=== PATIENT | female | born 1995 | race African-American/Black ===

== ENCOUNTER 2017-03-19 21:55 | Inpatient (IN) | payer OTHER ==
[~2017-03-19 21:55] MED LIST: DEXTROSE 5%-LACTATED RINGERS 500 ML IV SCH
[2017-03-19] MEDS ORDERED: DEXTROSE 5%-LACTATED RINGERS 500 ML IV SCH (22:55)
[2017-03-19] MEDS ORDERED: TUBERCULIN PPD 5 TU/0.1ML SYRINGE (IN PATIENT USE ONLY) ID ONE (23:15)
[2017-03-19] MEDS ORDERED: DINOPROSTONE 10 MG VAGINAL SUPPOSITORY VG ONE (23:15)
[2017-03-19 23:46] LABS: BASOPHIL 0.4 % (0-2.0); MCH 27.3 pg (25.7-33.7); MEAN CELL VOLUME 82.6 fl (80-96); MEAN PLT VOLUME 8.3 fl (7.5-11.1); NEUTROPHILS 67.2 % (42.8-82.8); PLATELET COUNT 158 K/MM3 (134-434); RDW 14.4 % (11.6-15.6)
[2017-03-20 00:02] LABS: INR 0.96 (0.82-1.09); PROTHROMBIN TIME (PATIENT) 10.5 SEC (9.98-11.88)
[2017-03-20 00:05] LABS: ACTIVATED PTT 28.8 SECONDS (26.9-34.4)
[2017-03-20 00:14] LABS: ANION GAP 9 (8-16); CALCIUM 8.7 mg/dL (8.5-10.1); CO2 24 mmol/L (21-32); CREATININE 0.8 mg/dL (0.55-1.02); GLUCOSE,RANDOM 111 mg/dL (74-106)
[2017-03-20 00:44] VITALS: BMI 28.8
[2017-03-20] MEDS: DEXTROSE 5%-LACTATED RINGERS 1,000 ML IV SCH ×3 (01:30→20:00)
[2017-03-20] MEDS ORDERED: DINOPROSTONE 10 MG VAGINAL SUPPOSITORY VG ONE (11:00)
--- NOTE | 2017-03-20 11:11 | HP ---
Past Medical History - Admission Chief Complaint: Here for labor induction History of Present Illness: 22 y/o with SIUP at 41.1 weeks gestation here for labor induction due to late term. 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 Pt SMA carrier and had umbilical cord cyst on 1st trimester screen - has been stable. Otherwise testing stable. GBS negative. HepBSag negative, RPR negative. Rubella Immune. History Source: Patient, Medical Record Limitations to Obtaining History: No Limitations - Past Medical History PODIATRIST: No: Migraine Cardiovascular: No: HTN Pulmonary: No: Asthma, COPD Gastrointestinal: No: Constipation, GERD Hepatobiliary: No: Cholecystitis Reproductive: No: Ectopic , PID ...: 2 ...Para: 0 ...Term: 0 ...: 0 ...Spon : 0 ...Induced : 1 ...Multiple Gestation: 0 ...LMP: 06/05/16 ... Weeks Gestation by Dates: 41.1 ...EDC by Dates: 03/12/17 Heme/Onc: Yes: Anemia Psych: No: Anxiety, Bipolar, Depression Endocrine: No: Diabetes Mellitus, Hyperthyroidism - Past Surgical History Past Surgical History: Yes: None Hx Myomectomy: No Hx Transabdominal Cerclage: No - Smoking History Smoking history: Never smoked Have you smoked in the past 12 months: No - Alcohol/Substance Use Hx Alcohol Use: No Home Medications - Allergies Allergies/Adverse Reactions: Allergies Allergy/AdvReac Type Severity Reaction Status Date / Time peanut Allergy Intermediate Hives Verified 03/19/17 22:59 - Home Medications Home Medications: Ambulatory Orders Vit No.130/Iron/FA [ Vitamins] 1 each PO DAILY 12/15/16 Acyclovir [Zovirax -] 400 mg PO BID 03/19/17 Review of Systems - Review of Systems Constitutional: reports: No Symptoms Eyes: reports: No Symptoms HENT: reports: No Symptoms Neck: reports: No Symptoms Cardiovascular: reports: No Symptoms Respiratory: reports: No Symptoms Gastrointestinal: reports: No Symptoms Genitourinary: reports: No Symptoms Breasts: reports: No Symptoms Reported Musculoskeletal: reports: No Symptoms Integumentary: reports: No Symptoms Neurological: reports: No Symptoms Endocrine: reports: No Symptoms Hematology/Lymphatic: reports: No Symptoms Psychiatric: reports: No Symptoms Physical Exam - Maternity Vital Signs: Vital Signs Temperature 98.4 F 03/20/17 10:00 Pulse Rate 92 H 03/20/17 10:00 Respiratory Rate 18 03/20/17 10:00 Blood Pressure 124/79 03/20/17 10:00 O2 Sat by Pulse Oximetry (%) Constitutional: Yes: Well Nourished, No Distress, Calm Eyes: Yes: Conjunctiva Clear, EOM Intact HENT: Yes: Atraumatic, Normocephalic Neck: Yes: Supple, Trachea Midline Cardiovascular: Yes: Regular Rate and Rhythm Lungs: Clear to auscultation - Abdominal Exam/OB Number of Fetuses: Single Presentation: Vertex Contractions: Yes Regularity: Regular Intensity: Moderate Category: I Accelerations: Uniform Decelerations: None - Vaginal Exam/OB Dilatation (cm): 1 Effacement (%): 0 Amniotic Membrane Status: Intact Presentation: Vertex/Position Station: -3 - Physical Exam Psychiatric: Yes: Alert, Oriented - Labs Lab Results: CBC, BMP 03/19/17 23:30 03/19/17 23:30 Hemorrhage Risk Assessment - Risk Factors Medium Risk Factors: Yes: None High Risk Factors: Yes: None Risk Score: 1 Risk Level: Medium Risk Problem List - Problems (1) Post-dates Code(s): O48.0 - POST-TERM (2) HSV infection Code(s): B00.9 - HERPESVIRAL INFECTION, UNSPECIFIED Assessment/Plan 22 y/o with SIUP at 41.1 weeks, IOL for late term - AFVSS - FHTs cat 1 - IOL, s/p cervidil overnight, 2nd placed this a.m. - will reassess in 12 hours - GBS negative
[2017-03-20] MEDS ORDERED: PROMETHAZINE HCL 25 MG/1 ML VIAL IVPUSH ONE (11:19)
--- NOTE | 2017-03-20 19:53 | PN ---
Ante-Partal Exam - Subjective Subjective: Pt uncomfortable with contractions. Cervidil fell out. Vital Signs: Vital Signs Temperature 98.1 F 03/20/17 18:00 Pulse Rate 92 H 03/20/17 19:00 Respiratory Rate 18 03/20/17 19:00 Blood Pressure 120/66 03/20/17 19:00 O2 Sat by Pulse Oximetry (%) Bleeding: No Headache: No Visual changes: No Right upper quadrant pain: No - Contractions Contractions: Yes Regularity: Irregular Intensity: Moderate - Exam during Labor Heart Rate: 135 Variability: Moderate Category: I Monitor Accelerations: Present Monitor Decelerations: None Exam: Vaginal Dilatation (cm): 1 Effacement (%): 0 Amniotic Membrane Status: Intact Presentation: Vertex Station: -3 - Assessment/Plan Assessment/Plan: 22 y/o with SIUP at 41 weeks, IOL for late term - AFVSS - FHTS cat 1 - IOL, s/p cervidil X 2. For Mccray bulb balloon placement at this time. - GBS negative - continue current care
[2017-03-20] MEDS: BUTORPHANOL TARTRATE 1 MG/ML VIAL IVPB PRN (21:15)
--- NOTE | 2017-03-20 21:17 | PROC ---
Procedure Note Procedure: Mccray balloon catheter placed in the cervix - inside the internal os 30cc balloon advanced, 30cc saline injected to inflate balloon balloon placed on traction will monitor IV analgesia PRN
[2017-03-20] MEDS ORDERED: PROMETHAZINE HCL 25 MG/1 ML VIAL IVPB PRN (22:56)
[2017-03-20] MEDS ORDERED: OXYTOCIN 15 UNITS/ LR 250 ML 250 ML IV SCH (23:00)
--- NOTE | 2017-03-20 23:03 | PN ---
Ante-Partal Exam - Subjective Subjective: Came to evaluate patient - daugherty balloon catheter had fallen out into the bed. S/p Stadol/phenergan, resting in between contractions. Vital Signs: Vital Signs Temperature 98.0 F 03/20/17 22:00 Pulse Rate 87 03/20/17 22:00 Respiratory Rate 18 03/20/17 22:00 Blood Pressure 138/87 03/20/17 22:00 O2 Sat by Pulse Oximetry (%) Bleeding: No Headache: No Visual changes: No Right upper quadrant pain: No - Contractions Contractions: Yes Regularity: Irregular Intensity: Mild/Mod Monitor Mode: External - Exam during Labor Heart Rate: 135 Variability: Minimal Category: I Monitor Accelerations: Present Monitor Decelerations: None Exam: Vaginal Dilatation (cm): 3 Effacement (%): 0 Amniotic Membrane Status: Intact Presentation: Vertex Station: -3 - Intrapartum Hemorrhage Risk Medium Risk Factors: None High Risk Factors: None Risk Score: 0 Risk Level: Low Risk - Assessment/Plan Assessment/Plan: 22 y/o with SIUP at 41.1 weeks, IOL for late term - AFVSS - FHTs cat 1 - IOL, s/p cervidil X 2 and s/p daugherty bulb catheter , now 3cm dilated, will start pitocin - IV analgesia or epidural prn - GBS negative
[2017-03-21] MEDS: DEXTROSE 5%-LACTATED RINGERS 1,000 ML IV SCH (03:00)
[2017-03-21] MEDS: BUTORPHANOL TARTRATE 1 MG/ML VIAL IVPB PRN (07:20)
--- NOTE | 2017-03-21 07:51 | PN ---
Ante-Partal Exam - Subjective Subjective: pt comfortable s/p stadol/phenergan Vital Signs: Vital Signs Temperature 98.9 F 03/21/17 05:45 Pulse Rate 92 H 03/21/17 05:45 Respiratory Rate 20 03/21/17 05:45 Blood Pressure 129/90 03/21/17 05:45 O2 Sat by Pulse Oximetry (%) Bleeding: No Headache: No Visual changes: No Right upper quadrant pain: No Pain (scale 1-10): 2 - Contractions Contractions: Yes Regularity: Regular Intensity: Moderate Monitor Mode: External - Exam during Labor Heart Rate: 150 Variability: Moderate Category: I Monitor Accelerations: Present Monitor Decelerations: None Exam: Vaginal Dilatation (cm): 3 Effacement (%): 25 Amniotic Membrane Status: Ruptured (AROM for clear fluid at this examination) Amniotic Fluid: Clear Presentation: Vertex Station: -3 - Intrapartum Hemorrhage Risk Medium Risk Factors: None High Risk Factors: None Risk Score: 0 Risk Level: Low Risk - Assessment/Plan Assessment/Plan: 22 y/o with SIUP at 41.2 weeks, IOL for late term - AFVSS - FHTs cat 1 - IOL, s/p cervidil x 2 , s/p daugherty bulb, now on pitocin. Now AROM for clear fluid at this examination. - for epidural prn
[2017-03-21] MEDS: ELECTROLYTE-148 SOLN 1,000 ML IV SCH ×2 (10:30→20:54)
--- NOTE | 2017-03-21 11:39 | PN ---
Ante-Partal Exam - Subjective Subjective: Pt on 18mu pitocin Pt with c/o pain Vital Signs: Vital Signs Temperature 98.1 F 03/21/17 10:00 Pulse Rate 73 03/21/17 10:00 Respiratory Rate 20 03/21/17 10:00 Blood Pressure 124/74 03/21/17 10:00 O2 Sat by Pulse Oximetry (%) Bleeding: No Headache: No Visual changes: No Right upper quadrant pain: No - Contractions Contractions: Yes Regularity: Regular Intensity: Moderate Monitor Mode: External - Exam during Labor Variability: Moderate Heart Rate Location: [facility] Category: II Monitor Accelerations: Present Monitor Decelerations: Variable Exam: Vaginal Dilatation (cm): 3 Effacement (%): 70 Amniotic Membrane Status: Ruptured Presentation: Vertex Station: 0 - Assessment/Plan Assessment/Plan: Failure to Dilate Cat 2 lack of progress discussed with pt who agrees on having a CS Plan Primary CS
[2017-03-21] MEDS ORDERED: ONDANSETRON 4 MG/2 ML VIAL IVPB PRN (15:24)
[2017-03-21] MEDS ORDERED: morphine SULFATE/Preservative Free 0.5 MG/ML (1cc Syringe) EP ONE (15:24)
[2017-03-21] MEDS ORDERED: IBUPROFEN 800 MG/8 ML IJ IVPB PRN (15:25)
[2017-03-21] MEDS ORDERED: oxyCODONE HCL 5 MG TABLET PO PRN ×2 (16:23)
[2017-03-21] MEDS ORDERED: METHYLERGONOVINE MALEATE 0.2 MG/1 ML AMP IM PRN (16:23)
--- NOTE | 2017-03-21 16:56 | OP ---
Operative Note - Note: Operative Date: 03/21/17 Pre-Operative Diagnosis: failed labor induction, late term Operation: primary low transverse delivery Findings: normal b/l tubes and ovaries Post-Operative Diagnosis: Same as Pre-op Surgeon: Matilde Turner Fountain Manager: Herberth Corcoran Anesthesiologist/PAN DEVULCANIZER HELPER: Taqueria Hitchcock Anesthesia: Spinal Specimens Removed: placenta Estimated Blood Loss (mls): 700 Operative Report Dictated: Yes
[2017-03-21] MEDS ORDERED: BISACODYL 10 MG SUPP.RECT RC PRN (17:12)
[2017-03-21] MEDS: OXYTOCIN 20 UNITS in 0.9% NS 1,000 ML IV SCH (18:30)
[2017-03-21] MEDS: PRENATAL VITAMINS W/ FOLIC ACID TABLET (FP) PO SCH (20:54)
[2017-03-22] MEDS: OXYTOCIN 20 UNITS in 0.9% NS 1,000 ML IV SCH (01:23)
[2017-03-22 07:46] LABS: BASOPHIL 0.3 % (0-2.0); EOSINOPHIL 0.1 % (0-4.5); MCH 26.6 pg (25.7-33.7); MCHC 32.2 g/dl (32.0-36.0); MEAN CELL VOLUME 82.5 fl (80-96); MEAN PLT VOLUME 8.5 fl (7.5-11.1); NEUTROPHILS 82.1 % (42.8-82.8); PLATELET COUNT 148 K/MM3 (134-434); RDW 14.6 % (11.6-15.6); WHITE BLOOD COUNT 17.4 K/mm3 (4.0-10.0)
[2017-03-22] MEDS: DEXTROSE 5%-LACTATED RINGERS 1,000 ML IV SCH (08:56)
[2017-03-22] MEDS: PRENATAL VITAMINS W/ FOLIC ACID TABLET (FP) PO SCH (09:08)
[2017-03-22] MEDS: CEFAZOLIN (PRE-DOCKED) 50 ML IVPB SCH ×2 (12:34→19:50)
--- NOTE | 2017-03-22 16:01 | PN ---
Post Progress Note Type of Delivery: Primary C/S Vital Signs: Vital Signs Temperature 98.8 F 03/22/17 14:27 Pulse Rate 101 H 03/22/17 13:55 Respiratory Rate 20 03/22/17 14:00 Blood Pressure 109/74 03/22/17 13:55 O2 Sat by Pulse Oximetry (%) 100 03/21/17 17:50 Uterus: Yes: Fundus Firm, Fundus below umbilicus Incision: Yes: Dressing dry and intact Abdomen/GI: Yes: Abdomen soft, Tender, Tolerating PO. No: Passing flatus Lochia: Yes: Rubra Lochia, amount: Small Extremities: Yes: Calves non-tender. No: Edema Perineum: Yes: Intact Activity: Ambulating - Labs Labs: CBC WBC 17.4 K/mm3 (4.0-10.0) H D 03/22/17 06:00 RBC 3.49 M/mm3 (3.60-5.2) L 03/22/17 06:00 Hgb 9.3 GM/dL (10.7-15.3) L 03/22/17 06:00 Hct 28.8 % (32.4-45.2) L 03/22/17 06:00 MCV 82.5 fl (80-96) 03/22/17 06:00 MCH 26.6 pg (25.7-33.7) 03/22/17 06:00 MCHC 32.2 g/dl (32.0-36.0) 03/22/17 06:00 RDW 14.6 % (11.6-15.6) 03/22/17 06:00 Plt Count 148 K/MM3 (134-434) 03/22/17 06:00 MPV 8.5 fl (7.5-11.1) 03/22/17 06:00 Neutrophils % 82.1 % (42.8-82.8) D 03/22/17 06:00 Lymphocytes % 8.5 % (8-40) D 03/22/17 06:00 Monocytes % 9.0 % (3.8-10.2) 03/22/17 06:00 Eosinophils % 0.1 % (0-4.5) D 03/22/17 06:00 Basophils % 0.3 % (0-2.0) 03/22/17 06:00 Problem List - Problems (1) Post-dates Code(s): O48.0 - POST-TERM (2) HSV infection Code(s): B00.9 - HERPESVIRAL INFECTION, UNSPECIFIED (3) delivery delivered Code(s): O82 - ENCOUNTER FOR DELIVERY WITHOUT INDICATION Assessment/Plan 22 y/o POD#1 s/p primary delivery for arrest of dilation/failed IOL - AFVSS - Tmax 100.3 and WBC 17.4 - is on IV Ancef X 24 hours, will monitor - encourage ambulation - s/p void - advance diet as tolerated - po pain meds
[2017-03-22] MEDS ORDERED: BISACODYL 10 MG SUPP.RECT RC PRN (16:23)
[2017-03-22] MEDS: IBUPROFEN 600 MG TABLET (FP) PO PRN (19:48)
[2017-03-22] MEDS: SIMETHICONE 80 MG TAB.CHEW (FP) PO PRN (19:48)
[2017-03-22] MEDS: ACETAMINOPHEN 325 MG TABLET (FP) PO PRN (19:49)
[2017-03-23] MEDS: CEFAZOLIN (PRE-DOCKED) 50 ML IVPB SCH (03:55)
[2017-03-23] MEDS: DEXTROSE 5%-LACTATED RINGERS 1,000 ML IV SCH (03:55)
--- NOTE | 2017-03-23 09:23 | PN ---
Progress Note, Physician Chief Complaint: Patient offers no complaints History of Present Illness: 22 year old female, s/p caesearn section day 2 - Current Medication List Current Medications: Active Medications Acetaminophen (Tylenol -) 650 mg PO Q4H PRN PRN Reason: FEVER OR PAIN Last Admin: 03/22/17 19:49 Dose: 650 mg Bisacodyl (Dulcolax Suppository -) 10 mg RC BID PRN PRN Reason: CONSTIPATION Diphenhydramine HCl (Benadryl Injection -) 25 mg IVPUSH Q4H PRN PRN Reason: Pruritis Dextrose/Lactated Ringer's (D5-Lr -) 1,000 mls @ 125 mls/hr IV ASDIR MATIAS Last Admin: 03/23/17 03:55 Dose: 125 mls/hr Oxytocin/Sodium Chloride (Normal Saline+20 Units Oxytocin -) 1,000 mls @ 125 mls/hr IV ASDIR MATIAS Last Admin: 03/22/17 01:23 Dose: 125 mls/hr Cefazolin Sodium (Ancef 1gm Ivpb (Pre-Docked)) 50 mls @ 100 mls/hr IVPB Q8H [facility] Stop: 03/23/17 11:59 Last Admin: 03/23/17 03:55 Dose: 100 mls/hr Ibuprofen (Caldolor Injection -) 600 mg IVPB Q8H PRN PRN Reason: FEVER Ibuprofen (Motrin -) 600 mg PO Q4H PRN PRN Reason: PAIN Last Admin: 03/22/17 19:48 Dose: 600 mg Methylergonovine Maleate (Methergine Injection -) 0.2 mg IM Q4H PRN PRN Reason: Excessive Bleeding (L&D) Oxycodone HCl (Roxicodone -) 5 mg PO Q4H PRN PRN Reason: PAIN LEVEL 1-5 Oxycodone HCl (Roxicodone -) 10 mg PO Q4H PRN PRN Reason: PAIN LEVEL 6-10 Multivit/Folic Acid/Iron ( Vitamins (Sjr) -) 1 tab PO DAILY [facility] Last Admin: 03/22/17 09:08 Dose: Not Given Simethicone (Mylicon -) 80 mg PO Q4H PRN PRN Reason: GAS Last Admin: 03/22/17 19:48 Dose: 80 mg - Objective Vital Signs: Vital Signs Temperature 97.9 F 03/23/17 04:00 Pulse Rate 76 03/23/17 04:00 Respiratory Rate 18 03/23/17 04:00 Blood Pressure 106/76 03/23/17 04:00 O2 Sat by Pulse Oximetry (%) 100 03/21/17 17:50 Constitutional: Yes: No Distress, Calm Eyes: Yes: Conjunctiva Clear, EOM Intact HENT: Yes: Atraumatic, Normocephalic Neck: Yes: Supple, Trachea Midline Cardiovascular: Yes: Regular Rate and Rhythm Respiratory: Yes: Regular Gastrointestinal: Yes: WNL, Normal Bowel Sounds, Soft ...Rectal Exam: Yes: Deferred Genitourinary: Yes: WNL Breast(s): Yes: WNL Musculoskeletal: Yes: WNL Extremities: Yes: WNL Edema: No Peripheral Pulses WNL: Yes Integumentary: Yes: WNL Wound/Incision: Yes: Clean/Dry Neurological: Yes: Alert, Oriented ...Motor Strength: WNL Psychiatric: Yes: Alert, Oriented Labs: CBC, BMP 03/22/17 06:00 03/19/17 23:30 INR, PTT INR 0.96 (0.82-1.09) 03/19/17 23:30 Assessment/Plan s/p caesearan section day 2. condition stable, continue current care.
[2017-03-23] MEDS: PRENATAL VITAMINS W/ FOLIC ACID TABLET (FP) PO SCH (10:34)
[2017-03-23] MEDS: ACETAMINOPHEN 325 MG TABLET (FP) PO PRN ×2 (10:36→21:24)
[2017-03-23] MEDS: SIMETHICONE 80 MG TAB.CHEW (FP) PO PRN ×2 (10:38→21:23)
[2017-03-23] MEDS: IBUPROFEN 600 MG TABLET (FP) PO PRN ×2 (10:40→21:24)
--- NOTE | 2017-03-23 16:45 | PN ---
Progress Note (short form) - Note Progress Note: Anesthesiology post op check S/p c section post op day 2 under spinal anesthesia with duramorph for post op pain control Patient reports adequate pain control, no nausea or vomiting and full return of motor function. Vital Signs Temperature 97.9 F 03/23/17 10:00 Pulse Rate 91 H 03/23/17 10:00 Respiratory Rate 20 03/23/17 10:00 Blood Pressure 134/82 03/23/17 10:00 O2 Sat by Pulse Oximetry (%) 100 03/21/17 17:50 No sign of neurologic deficits A/P no adverse effects of anesthetic, dept of anesthesia will sign off care at this time, Feel free to re consult the department with further questions or concerns regarding pain or the anesthetic administered.
--- NOTE | 2017-03-24 07:05 | PN ---
Post Progress Note - Subjective Subjective: Pt seen/evaluated and doing well. No complaints. Ambulating, voiding, passing flatus, tolerating diet. No CP, SOB, F/C/SHANE. Type of Delivery: Primary C/S Vital Signs: Vital Signs Temperature 98.0 F 03/23/17 21:48 Pulse Rate 89 03/23/17 21:48 Respiratory Rate 20 03/23/17 21:48 Blood Pressure 110/73 03/23/17 21:48 O2 Sat by Pulse Oximetry (%) 100 03/21/17 17:50 Uterus: Yes: Fundus Firm, Fundus below umbilicus Incision: Yes: Sutures intact Abdomen/GI: Yes: Abdomen soft, Passing flatus, Tolerating PO. No: Abdominal Distention, Tender Lochia: Yes: Rubra Lochia, amount: Small Extremities: Yes: Calves non-tender. No: Edema Perineum: Yes: Intact Activity: Ambulating - Labs Labs: CBC WBC 17.4 K/mm3 (4.0-10.0) H D 03/22/17 06:00 RBC 3.49 M/mm3 (3.60-5.2) L 03/22/17 06:00 Hgb 9.3 GM/dL (10.7-15.3) L 03/22/17 06:00 Hct 28.8 % (32.4-45.2) L 03/22/17 06:00 MCV 82.5 fl (80-96) 03/22/17 06:00 MCH 26.6 pg (25.7-33.7) 03/22/17 06:00 MCHC 32.2 g/dl (32.0-36.0) 03/22/17 06:00 RDW 14.6 % (11.6-15.6) 03/22/17 06:00 Plt Count 148 K/MM3 (134-434) 03/22/17 06:00 MPV 8.5 fl (7.5-11.1) 03/22/17 06:00 Neutrophils % 82.1 % (42.8-82.8) D 03/22/17 06:00 Lymphocytes % 8.5 % (8-40) D 03/22/17 06:00 Monocytes % 9.0 % (3.8-10.2) 03/22/17 06:00 Eosinophils % 0.1 % (0-4.5) D 03/22/17 06:00 Basophils % 0.3 % (0-2.0) 03/22/17 06:00 Problem List - Problems (1) Post-dates Code(s): O48.0 - POST-TERM (2) HSV infection Code(s): B00.9 - HERPESVIRAL INFECTION, UNSPECIFIED (3) delivery delivered Code(s): O82 - ENCOUNTER FOR DELIVERY WITHOUT INDICATION Assessment/Plan 22 y/o POD#3 s/p primary delivery for arrest of dilation/failed IOL - AFVSS - encourage ambulation - regular diet, PO pain meds - routine care - ok for discharge
--- NOTE | 2017-03-24 07:11 | DS ---
Physical Exam-PATIENT FINANCIAL REP Vital Signs: Vital Signs Temperature 98.0 F 03/23/17 21:48 Pulse Rate 89 03/23/17 21:48 Respiratory Rate 20 03/23/17 21:48 Blood Pressure 110/73 03/23/17 21:48 O2 Sat by Pulse Oximetry (%) 100 03/21/17 17:50 Constitutional: Yes: Well Nourished, No Distress, Calm Eyes: Yes: Conjunctiva Clear, EOM Intact Neck: Yes: Trachea Midline Cardiovascular: Yes: Regular Rate and Rhythm Respiratory: Yes: Regular, CTA Bilaterally Gastrointestinal: Yes: Normal Bowel Sounds, Soft Labs: CBC, BMP 03/22/17 06:00 03/19/17 23:30 Delivery - Delivery Section: Primary, Low Flap Transverse Type of Anesthesia: Spinal Episiotomy/Laceration: None EBL (cc): 700 Delivery, Single - Stages of Labor Date 1st Stage Initiatied: 03/20/17 Time 1st Stage Initiated: 23:00 Date of Delivery: 03/21/17 Time of Delivery: 16:32 Time Placenta Delivered: 16:33 - Condition of Infant Infrastructure Analyst/Naturalization Examiner Present: Yes Name: Shabbir Jones Infant Gender: Male Weight: 8 lb 10 oz Position: OP Total Hours ROM (Hrs/Mins): 8HRS 53MIN - 1 Minute Total Score: 8 5 Minutes Total Score: 9 - Feeding Plan Initial Plan: Elected not to breastfeed exclusively throughout hospitalization Discharge Summary Reason For Visit: LABOR ADMIT Current Active Problems delivery delivered (Acute) HSV infection (Acute) Post-dates (Acute) Procedures: Principal: Primary delivery. Hospital Course: Patient admitted on 03/19/17 for labor induction, due to failed induction underwent uncomplicated primary delivery on 03/21/17. The patient had an uncomplicated post course and was discharged home in stable condition on post op day 3. Condition: Good - Instructions Diet, Activity, Other Instructions: Physical activity Resume your normal everyday activity as tolerated but no heavy lifting or strenuous exercise until seen by your surgeon. You may walk unlimited amounts and climb stairs. You may resume driving the car when you feel safe and comfortable behind the wheel. No sexual activity as instructed for 6 weeks. Wound care If there are tapes on the skin leave them in place. They will peel off in the next 7 to 10 days. Do Not Peel them off. You may shower the day after surgery. If there are tapes present on the skin, you may shower over them. Follow up in 1 week in the office to check your incision - call the office to make that appointment. Diet There are no dietary restrictions. Eat healthy, high-fiber foods. Drink 6 to 8 glasses of liquid each day. This will assist in keeping your bowels regular. Pain management You may take Tylenol or Ibuprofen (for example, Motrin, Advil etc.) for mild pain . If any prescription medication is ordered should be taken as prescribed for moderate to severe pain. Call MD for any of the following: Severe pain not relieved by medication Fever of 101 or higher Excessive bleeding or drainage on dressing Inability to urinate Referrals: Matilde Turner DO [Staff Physician] - 1 Week Disposition: HOME - Home Medications Comprehensive Discharge Medication List: Ambulatory Orders Vit No.130/Iron/FA [ Vitamins] 1 each PO DAILY 12/15/16 Acyclovir [Zovirax -] 400 mg PO BID 03/19/17 Ibuprofen [Motrin -] 600 mg PO QID PRN #28 tablet 03/24/17 Oxycodone HCl/Acetaminophen [Percocet 5-325 mg Tablet -] 1 tab PO Q4H #30 tablet MDD 6 03/24/17
[2017-03-24] MEDS: PRENATAL VITAMINS W/ FOLIC ACID TABLET (FP) PO SCH (09:17)
[2017-03-24 10:06] LABS: BASOPHIL 0.2 % (0-2.0); EOSINOPHIL 3.1 % (0-4.5); MCH 27.5 pg (25.7-33.7); MCHC 33.6 g/dl (32.0-36.0); MEAN CELL VOLUME 81.9 fl (80-96); MEAN PLT VOLUME 8.1 fl (7.5-11.1); NEUTROPHILS 76.1 % (42.8-82.8); PLATELET COUNT 210 K/MM3 (134-434); RDW 14.8 % (11.6-15.6)
[2017-03-24 10:20] VITALS: BP 115/75; PULSE 83; TEMP 97.9
--- NOTE | 2017-03-26 09:07 | OP ---
DATE OF OPERATION: 03/21/2017 PREOPERATIVE DIAGNOSIS: Failed induction of labor in late term . POSTOPERATIVE DIAGNOSIS: Failed induction of labor in late term . PROCEDURE: Primary low transverse section. SURGEON: Matilde Turner DO MACHINE TOOL OPERATOR: ZANDER Palmer ANESTHESIA: Spinal, administered by Curtis Hitchcock MD. ESTIMATED BLOOD LOSS: 700 mL SPECIMENS REMOVED: Included placenta. FINDINGS: Normal bilateral tubes and ovaries. COMPLICATIONS: None. COUNTS: Sponge, needle, and instrument count correct. DISPOSITION: Stable to PACU. BRIEF HISTORY AND PROCEDURE: Patient is a 22-year-old, G2, P 0-0-1-0, who was admitted to Labor and Delivery on March 19, 2017, for a scheduled induction of labor secondary to a late term . Patient underwent a 48-hour induction of labor with minimal progress to only 3 cm dilated. The patient was offered options including continued induction versus proceed with delivery, and the patient elected to proceed with a delivery at this time. Consent for the procedure was signed. The patient on March 21, 2017, was then taken back to the operating room and given spinal anesthesia by Dr. Hitchcock. She was placed in the dorsal supine position, and a Mccray catheter was placed under sterile conditions. The patient was prepped and draped in the usual sterile fashion, and a hard timeout was performed. A Pfannenstiel skin incision was created in the skin with a scalpel and carried to the underlying layer of rectus fascia with the Bovie. The fascia was incised on either side of the midline with the Bovie, and the fascial incision was carried in the superolateral direction sharply. The fascia was tented upward and dissected off the underlying layer of rectus muscle sharply, and the muscle was retracted laterally. Next, the peritoneum was entered bluntly, and a bladder blade was inserted to protect the bladder. A transverse incision was created on the lower uterine segment which was extended in a superolateral direction bluntly. The was then delivered from the occiput posterior position without difficulty. The anterior and posterior shoulders both delivered with ease along with the remainder of the infant. The cord was clamped twice and cut in between and taken over to the warmer to be assessed by the neonatology staff, where the baby received scores of 8 and 9. The placenta was then delivered manually and intact. The uterus was exteriorized from the abdomen, inspected, and cleared of all amniotic membrane and debris with a dry lap sponge. The hysterotomy was reapproximated in a single-layer closure using 1 Vicryl suture in a running locked fashion. Any areas of bleeding were given figure-of-8 sutures with 0 Biosyn suture to create hemostasis. Bilateral tubes and ovaries were inspected and noted to be normal. Next, the posterior cul-de-sac was suctioned. The uterus was placed back into the abdomen. Bilateral gutters were inspected and cleared of all blood clot and debris. Again, the hysterotomy was noted to be hemostatic at this time. The peritoneal layer was reapproximated using 2-0 chromic suture in a running fashion. The musculature was reapproximated in 2 interrupted sutures using 0 Biosyn. The fascia was reapproximated using 1 Vicryl suture in a running fashion. Subcutaneous tissue was irrigated and reapproximated in interrupted sutures using 0 Biosyn suture, and the skin was reapproximated in subcuticular fashion using Vicryl suture. Steri-Strips were applied. The patient was then recovering well in the PACU area of the labor and delivery floor after the procedure. MATILDE TURNER DO /[id number]
--- NOTE | 2017-03-26 16:58 | PATH ---
Surgical Pathology Report Patient Name: WILLARD RICKS Med. Rec. #: [id number] /Age/Gender: 1995 (Age: 22) / F Account: [id number] Location: [facility] OBS/PET COUNSELOR Taken: 03/21/2017 Received: 03/22/2017 Reported: 03/26/2017 Physicians: Matilde Turner M.D. Specimen(s) Received PLACENTA Clinical History 41.2 weeks failed medical induction IAB x1,HSV treated with acyclovir, anemia History of SMA carrier-normal 16 weeks scan, umbilical cord cyst-benign Final Diagnosis PLACENTA, DELIVERY: THIRD TRIMESTER PLACENTA WITH SUBCHORIONIC FIBRIN DEPOSITION, 3 VESSEL UMBILICAL CORD, AND UNREMARKABLE PLACENTAL MEMBRANES. NO UMBILICAL CORD CYST IDENTIFIED. Electronically Signed Phu Villarreal M.D. Gross Description The specimen is received fresh labeled placenta and is a 535 gram, 19 x 15 x up to 3 cm. placenta with attached membranes and umbilical cord. The attached membranes are glistening and translucent and insert marginally. The umbilical cord measures 45 cm. in length and averages 1.5 cm. in diameter. The cord inserts eccentrically, 5 cm. to the nearest margin. No true knots or strictures are identified. No cystic area is identified. Cut surface of the umbilical cord reveals 3 vessels. The surface is eaton-blue with minimal fibrin deposition and appropriate caliber vessels. The maternal surface is lobulated and appears complete with no adherent blood clot or areas of thinning. Sectioning reveals red-brown, spongy parenchyma. No lesions are identified. Auditing Specialist sections are submitted in three cassettes as follows: 1- membrane rolls and umbilical cord; 2-3- full thickness sections of placenta. [facility]/03/25/2017 [facility]/03/25/2017
== END 2017-03-24 13:00 | disposition home or self-care (01) | DRG 540 ==
LOC: JLDR 21:55 → J3W 03-21 20:10
PROVIDERS: ADMIT Obstetrics & Gynecology; ATTEND Obstetrics & Gynecology
PROC: 3E0P7GC Introduction of Other Therapeutic Substance into Female Reproductive, Via Natural or Artificial Opening (ICD-10-PCS; 2017-03-20)
PROC: 10D00Z1 Extraction of Products of Conception, Low, Open Approach (ICD-10-PCS; principal; 2017-03-21)
DX: O61.0 Failed medical induction of labor (principal); O48.0 Post-term pregnancy; Z3A.41 41 weeks gestation of pregnancy; O98.52 Other viral diseases complicating childbirth; B00.89 Other herpesviral infection; O62.0 Primary inadequate contractions; Z37.0 Single live birth
CPT/HCPCS: 36415; 80048; 85025; 85610; 85730; 86593; 86850; 86900; 86901; 88307-TC

== ENCOUNTER 2021-08-07 15:10 | Emergency (ER) | payer OTHER ==
[2021-08-07 15:21] VITALS: BP 113/76; PULSE 89; TEMP 97.8; BMI 24.4
== END 2021-08-07 19:31 | disposition home or self-care (01) ==
LOC: JER 15:10 → JERFT 15:10 → JER 19:31
DX: O26.891 Other specified pregnancy related conditions, first trimester (principal); W01.0XXA Fall on same level from slipping, tripping and stumbling without subsequent striking against object, initial encounter; Y92.091 Bathroom in other non-institutional residence as the place of occurrence of the external cause
CPT/HCPCS: 76830-TC; 84703; 99284-25

== ENCOUNTER 2021-11-20 10:37 | Emergency (ER) | payer OTHER ==
[2021-11-20 11:46] VITALS: BP 118/58; PULSE 72; TEMP 98.3; BMI 25.6
[2021-11-20 13:15] LABS: BASO % 0.4 % (0-2.0); EOS % 0.5 % (0-4.5); HEMOGLOBIN 12.7 GM/dL (10.7-15.3); LYMPH % 21.1 % (8-40); MCH 31.6 pg (25.7-33.7); MCHC 34.3 g/dl (32.0-36.0); MEAN PLT VOLUME 8.9 fl (7.5-11.1); MONO % 9.8 % (3.8-10.2); NEUT % 68.2 % (42.8-82.8); PLATELET COUNT 242 10^3/uL (134-434); RBC 4.02 M/mm3 (3.60-5.2); RDW 13.1 % (11.6-15.6); WHITE BLOOD COUNT 7.5 K/mm3 (4.0-10.0)
[2021-11-20 13:30] LABS: PH,URINE 7.5 (5.0-8.0); URINE APPEARANCE CLOUDY; URINE BILIRUBIN NEGATIVE (NEGATIVE); URINE COLOR YELLOW; URINE GLUCOSE (UA) NEGATIVE (NEGATIVE); URINE KETONE 1+ (NEGATIVE); URINE LEUK ESTERASE NEGATIVE (NEGATIVE); URINE NITRITE NEGATIVE (NEGATIVE); URINE PROTEIN NEGATIVE (NEGATIVE)
[2021-11-20 13:35] LABS: ALBUMIN 3.6 g/dl (3.4-5.0); BLOOD UREA NITROGEN 10.2 mg/dL (7-18); CALCIUM 8.7 mg/dL (8.5-10.1)
[2021-11-20 13:38] LABS: CREATININE 0.5 mg/dL (0.55-1.3)
[2021-11-20 13:40] LABS: BILIRUBIN,TOTAL 0.5 mg/dL (0.2-1); TOT PROT 6.7 g/dl (6.4-8.2)
== END 2021-11-20 15:11 | disposition home or self-care (01) ==
LOC: JERFT 10:37
DX: O26.891 Other specified pregnancy related conditions, first trimester (principal); Z3A.09 9 weeks gestation of pregnancy
CPT/HCPCS: 36415; 76801-TC; 80053; 81003; 84702; 85025; 87086; 99284-25